=== PATIENT | female | born 1945 | race Caucasian/White ===

== ENCOUNTER 2021-01-20 13:05 | Outpatient (RCR) | payer MEDICARE, OTHER, SELFPAY ==
--- NOTE | 2021-01-25 10:17 | MHC.SP.ADU ---
Referring provider: Dr. Erinn Olmos Reason for Referral: assess articulation s/p L CVA Type of Treatment: 71121 Evaluation Speech Sound Production WITH Language Date of Plan of Treatment: 01/20/21 Onset of Symptoms/Illness: 03/13/20 Medical Diagnosis: L CVA Primary Speech Language Diagnosis: R47.1 Dysarthria Secondary Speech Language Diagnosis: R47.01 Aphasia History Aniyah is a 75 year old female who was referred for a speech and language evaluation by her primary care physician, Dr. Olmos. She was accompanied to the evaluation by her son, Toni, who assisted with providing the following background information. 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 Toni reported that Aniyah was hospitalized at [facility] for 10 days. She then participated in 3 weeks of acute inpatient rehabilitation at [facility]. Aniyah was then transferred to [facility] for 2 additional months of rehab. Upon Aniyah's return home, she received PT, OT, and ST via [facility] services from September-December 2020. 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 Aniyah is and resides with her son, Toni, in [place]. Toni reported that he is his mother's night time nanny caregiver. Angelo is not currently receiving any in home services/therapies. Angelo is wheelchair bound due to right sided hemiplegia, though Toni reported that she is able to transfer well. Pt reported that she is right hand dominant. Aniyah wears cheater glasses when reading. Hearing was reported to be within normal limits. Aniyah reported her hobbies to be limited to watching television. Aniyah stated she enjoyed reading comic books prior to her CVA. Medical History: High Blood Pressure Stroke Other: atrial fibrillation, left ischemic CVA 03/13/2020, glaucoma, cataracts Pt denied any surgical history. Pt has an upcoming surgery on her right foot on 03/29/21. Medication List: Per pt's son Toni, pt takes a blood thinner, high blood pressure medication, and muscle relaxers (3x a day) to reduce pt's increased tone on the right side of her body. Recent Hospitalizations: No Respiratory Needs: Room Air Patient Orientation: Alert & Oriented x 4 Social History: Employment Status: Retired Highest level of education obtained: Completed High School/GED Current Living Situation: Pt resides in a townhouse in [place] with her son, Toni. Assistive Devices in use: Glasses/Contacts Wheelchair Comment: Pt reported that her vision is impaired, as she has diagnoses of glaucoma and cataracts. She reported that she has an appointment with Dr. Ramirez in 2 weeks to assess her vision. Pt wears cheaters when reading. Pt reported her hearing is excellent . Aniyah has used a wheelchair since her CVA in 2019 due to right sided hemiplegia. Past Speech Language Therapy: Aniyah previously received speech therapy while in acute rehabilitation at [facility] in March 2020, while at subacute rehabilitation at [facility], and most recently, at home via [facility]. Aniyah reported that she received 1x/week speech therapy provided in her home from September-December 2020. Other Therapies Seen in Current Calendar Year: Occupational Therapy Physical Therapy Speech Therapy Other: PT, OT, ST were reported to have been provided by [facility] from September-December 2020. Swallowing History: Dysphagia Specific: Within Functional Limits Comments: Pt denied any difficulties with her swallow function. She reported that she consumes regular consistency solids and thin liquids. Pre-eval Risk for Aspiration: None Pre-evaluation Dietary Consistencies: Regular Pre-eval Liquid Intake: Thin Pre-eval Medication Intake: Whole with Liquid Reported Speech, Language, Cognition difficulties: Understanding Reading Speaking Writing Comments: Aniyah reported difficulties with the production of speech, reading, and writing. She reported that her speech is best in the morning. Her son added that her speech becomes more difficult to understand after she takes muscle relaxers which she is prescribed to take 3x/day. She denied difficulties with understanding information. Quality of Life: Patient Stated Goal of Speech-Language Therapy: Aniyah stated: To talk right...to sound intelligent...to get back to where I started when I didn't have a stroke . Assessment Speech Production: Dysarthric Slurred Clinical Impression: Impaired Observations: Tikofsky's 50 word Intelligibility Test was administered. The purpose of this assessment is to quantify the degree of dysarthria based upon intelligibility of speech at the single word level. Aniyah was presented with single words presented on randomized index cards and asked to read the word aloud. Both this clinician and pt's son recorded the words perceived. This clinician understood 58% of single words produced and Aniyah's son understood 88% of single words produced. Analysis of Aniyah's production of single words revealed difficulty with the following speech sounds: - difficulty with the production of consonant clusters, e.g. Aniyah produced payground for playground , sarlight for starlight , and hernández for blush - difficulty with the production of the sounds /m/, /n/, /k/, /l/ Aniyah often demonstrated reduced breath support for speech, resulting in the omission of medial and final consonants at the single word level. During spontaneous conversation when the context of Aniyah's speech was unknown, this clinician understood approximately 50% of pt's speech. During a paragraph level reading task presented, Aniyah demonstrated increased effort to read aloud at the sentence/paragraph level. She was observed to use her finger to point along to the words in each sentence. Her overall intelligibility during this task was approximately 40-50%. Informal Voice Assessment: Voice Loudness: Monoloudness Voice Phonatory-based Quality: Weak Voice Pitch: Limited Variation Clinical Impression: Impaired Clinicial Observations: Aniyah demonstrated an inconsistent weak and monotone vocal quality which appeared to be related to fatigue. Aniyah's voice became weaker as the evaluation progressed. Tests of Speech & Lang Adults: Clinical Impression: Impaired Observations: Aniyah was presented with informal tasks to assess her expressive language, reading, and writing. She achieved 100% accuracy when asked to name functional objects. She also achieved 100% accuracy during a responsive naming task presented. For example, pt was asked to name objects given a description of them such as What do we tell time with? . Aniyah was able to state the category when presented with 3-4 category members with 100% accuracy. She named an average of 9 items when presented with a basic category such as animals. Aniyah read single words aloud with ease. Aniyah read paragraphs aloud and demonstrated more effort to do so. A slower decoding ability was noted as the length of the written material Aniyah was asked to read increased. Aniyah was observed to frequently lose her place while reading, e.g. she skipped ahead to 1-2 lines above/below the sentence she was reading. Pt was aware of this and was able to self correct. During a paragraph level reading task, similar speech sound errors as described above were noted. For instance, Aniyah reduced consonant clusters to one consonant such as in her production of resses for dresses and produced final consonant substitutions such as in Aniyah's production of frog for froth . When Aniyah was presented with a single word writing task, motoric difficulty was observed as she wrote with her non-dominant, left hand secondary to right sided hemiplegia. Writing also appeared effortful. Aniyah was able to write her first and last name with 100% accuracy. She was noted to write with a combination of upper case and lower case letters. During other single words Aniyah was asked to write, she demonstrated reversal of letters, such as when she was asked to write the name of her favorite food, Aniyah wrote pokr chop for pork chop . Aniyah was unaware of this error until it was pointed out, at which time she used a reverse symbol to indicate the reversal of the letters r and k. She demonstrated the use of phonetic spelling at times, which is a method of spelling in which each letter represents one spoken sound. For instance, when attempting to write the name of her favorite television show, [employer] [place] [place] , Aniyah wrote Ange cramer . Tests of Cognition: Clinical Impression: Impaired Observations: The Brief Cognitive Assessment Tool Short Form (BCAT-SF) was administered. This screening tool assists in identifying potential cognitive impairments and assesses the following domains: orientation, immediate verbal recall, immediate story recall, executive functions, delayed story recall, and story recognition. In the domain of orientation, Aniyah achieved 100% accuracy. She correctly verbalized the current month, day, year, city, state, and situation. Aniyah immediately recalled 4 unrelated words presented verbally during the immediate verbal recall task. She immediately recalled 6/11 oliveros elements in a 2 sentence story presented aloud and recalled the same amount given a 1-2 minute delay. Give an approximately 5 minute delay, Aniyah recalled 3 of the 4 words initially presented at the beginning of the screening tool. Given a category cue, Aniyah was able to recall 100% of the words. Based upon the results of the screening tool, Aniyah achieved a score of 16/21 (76% accuracy). While Aniyah understood basic level information, she did demonstrate difficulty with recall/comprehension of higher level information. For instance, Aniyah demonstrated difficulty with understanding this [employer]'s explanation [facility]. Despite several repetitions and explanations, Aniyah asked where and when she would be seeing this clinician for therapy. A complete cognitive assessment is recommended to further assess Aniyah's cognition. Impressions and Recommendations Summary: Aniyah presents with moderate dysarthria characterized by imprecise articulation, an intermittent weak, monotone vocal quality, and difficulty maintaining breath support for speech at times. She also demonstrated expressive aphasia as characterized by difficulty with reading sentence/paragraph level information and writing single words. Aniyah would benefit from outpatient speech and language therapy to treat dysarthria and expressive aphasia in order to increase her overall functional communication. Pt's cognition warrants further evaluation as well. Aniyah is highly motivated to improve her speech and language and has excellent family support to assist her with meeting her goals. Impact on Daily Function/Activity Limitations: Daily Activities: Severe Interpersonal Interactions: Severe Community: Severe Prognosis for Improvement: Good Comment: Aniyah is motivated to improve her functional communication and has good family support. Recommendation for Speech Therapy: Outpatient Speech Therapy Frequency/Duration: 1x/week x12 weeks Date Range for Service Requested: TBD based upon pt's therapy start date. Time to Reassess: 3 months [facility] Goals: 1. Aniyah will produce speech that is 100% intelligible to unfamiliar listeners with the use of compensatory strategies as needed. 2. Aniyah will increase her reading and writing ability to minimally impaired with the use of compensatory strategies as needed. Short Term Goals: Goal # : 1.1 Aniyah will produce target phonemes (/m/, /n/, /k/, /l/) at the single word level with 80% accuracy given min cues. Goal Status: New Goal Goal# : 1.2 Aniyah will correctly produce consonant clusters at the single word level with 80% accuracy given min cues. Goal Status: New Goal Goal # : 2.1 Aniyah will read 5-10 word sentences aloud with 80% accuracy given min cues. Goal Status: New Goal Goal # : 2.2 Aniyah will write 1-2 word phrases with 80% accuracy given min cues. Goal Status: New Goal Recommended Referrals to be Discussed with Primary Care Provider: It was a pleasure working with Aniyah and her son, Toni. Please do not hesitate to contact me at or at [email or web address] with any questions or concerns. Patient Education: Completed: Yes Patient/Caregiver Education: Described Results of Evaluation Family/Caregivers expressed understanding of results Family/Caregivers expressed agreement with goals and treatment plan Comments/Barriers to Learning: None Band Salvager Clinican/Clinical Fellow: No Supervisory Statement: N/A Speech Language Pathologist: Merle Caldwell M.A., CCC-[employer]
== END 2021-09-04 16:08 | disposition home or self-care (01) ==
LOC: HO.SH 13:05
PROVIDERS: Visit Provider Internal Medicine
DX: R47.1 Dysarthria and anarthria (principal); R47.01 Aphasia
CPT/HCPCS: 92523